=== PATIENT | female | born 1935 | race Caucasian/White ===

== ENCOUNTER 2018-09-05 09:16 | Inpatient (IN) ==
[2018-09-05] MEDS ORDERED: MoRPHine SULFATE 4 MG/ML 1 ML CARP\\VIAL IV PRN (09:26)
[2018-09-05] MEDS ORDERED: ONDANSETRON INJ 2 MG/ML 2 ML VIAL IV STA (09:26)
[2018-09-05 09:35] LABS: Basophils # (auto) 0.03 K/uL (0-0.2); Basophils % (auto) 0.3 %; Eosinophils # (auto) 0.03 K/uL (0-0.5); Eosinophils % (auto) 0.3 %; Hematocrit (blood only) 38.6 % (37-47); Hemoglobin 13.8 g/dL (12.0-16.0); Immature Granulocytes # (auto) 0.03 K/uL (0.00-0.02); Immature Granulocytes % (auto) 0.3 %; Lymphocytes # (auto) 1.19 K/uL (1.2-3.4); Lymphocytes % (auto) 12.7 %; Mean Corpuscular Hgb Conc 35.8 g/dL (32-36); Mean Corpuscular Volume 87.3 fL (80-100); Mean Platelet Volume 8.4 fL (7.4-10.4); Monocytes # (auto) 0.73 K/uL (0.11-0.59); Monocytes % (auto) 7.8 %; Neutrophils # (auto) 7.34 K/uL (1.4-6.5); Neutrophils % (auto) 78.6 %; Platelet Count 231 K/uL (130-400); RDW Coefficient of Variation 13.5 % (11.5-14.5); RDW Standard Deviation 43.5 fL (36.4-46.3); Red Blood Count 4.42 M/uL (4.2-5.4); White Blood Count 9.35 K/uL (4.8-10.8)
[2018-09-05 09:46] LABS: Partial Thromboplastin Ratio 0.9; Partial Thromboplastin Time 25.1 Seconds (21.0-31.0); Prothrombin Time 10.4 Seconds (9.0-12.0)
[2018-09-05 09:51] LABS: Alanine Aminotransferase 18 U/L (12-78); Albumin Level 3.5 gm/dl (3.4-5.0); Aspartate Aminotransferase 19 U/L (15-37); Blood Urea Nitrogen 8 mg/dl (7-18); Calcium 9.1 mg/dl (8.5-10.1); Carbon Dioxide 28 mmol/L (21-32); Chloride 96 mmol/L (98-107); Est GFR (African American) 97.7; Est GFR (Non-African American) 84.3; Glucose 117 mg/dl (70-99); Potassium 3.9 mmol/L (3.5-5.1); Sodium 132 mmol/L (136-145)
[2018-09-05 09:54] LABS: Albumin Globulin Ratio 0.9 (0.9-2); Alkaline Phosphatase 101 U/L (45-117); Bilirubin,Total 0.5 mg/dl (0.2-1); Total Protein 7.5 gm/dl (6.4-8.2)
--- NOTE | 2018-09-05 10:13 | XRay Report ---
XR hip RT 2-3V w pelvis CLINICAL HISTORY: Right hip pain status post trauma COMPARISON: None. DISCUSSION: There is an equivocal nondisplaced subcapital hip fracture. There is no dislocation. CT s bonilla should be considered follow-up. A calcification in the pelvis likely represents a calcified u terine fibroid. There is no SI joint diastases. There is no symphysis diastases. IMPRESSION: Somewhat limited study from positioning standpoint. A nondisplaced subcapital fracture ca nnot be excluded. CT scanning should be considered in follow-up. Electronically signed by: Elkin Berumen M.D. 09/05/2018 10:12 AM
--- NOTE | 2018-09-05 10:14 | XRay Report ---
XR chest 1V portable CLINICAL HISTORY: Hip pain status post trauma COMPARISON STUDY: No previous studies for comparison. FINDINGS: The heart is borderline enlarged. There is no failure. There is no lobar consolidation. The re are no pleural effusions. Increased left basilar markings are nonspecific are likely atelectatic. No pneumothorax is visualized.[ IMPRESSION: Slightly prominent left basilar markings statistically atelectatic. No failure. No eviden ce of lobar consolidation. Electronically signed by: Elkin Berumen M.D. 09/05/2018 10:12 AM
--- NOTE | 2018-09-05 11:29 | Magnetic Resonance Report ---
MR hip RT wo con CLINICAL HISTORY: Right hip pain status post trauma. Equivocal nondisplaced subcapital fracture on x- ray examination. Study requested by orthopedic surgeon. COMPARISON STUDY: X-ray study dated 09/05/2018 FINDINGS: Imaging was performed in the axial coronal and oblique sagittal planes. [employer] images reveal suspected multiple large gallstones. There are no areas of marrow replacement suspicious for neoplasm. There are multiple uterine fibroids. Subchondral cystic changes within the lateral right acetabulum are likely degenerative basis. There is T1 and T2 marrow edema involving the right femoral head and neck. There is a subtle cortical step-off at the level of the subcapital portion of the right femoral neck. There is a T1 hypointense band through the subcapital portion of the right hip. The findings are indicative of an acute subcap ital hip fracture. IMPRESSION: Acute subcapital right hip fracture. Electronically signed by: Elkin Berumen M.D. 09/05/2018 11:28 AM
[2018-09-05] MEDS ORDERED: BUPIVACAINE 0.5 % 5 MG/1 ML MPF 30ML VIAL INFIL ONE (11:44)
--- NOTE | 2018-09-05 11:55 | History & Physical Report ---
Date of Service September 05, 2018 Assessment & Plan (1) Fracture of right hip: Bedrest. Carias catheter placement. Parenteral pain control measures. Orthopedic consultation. N.p.o. after midnight for OR tomorrow Present on Admission?: Yes (2) HTN (hypertension): Treated with Benicar Present on Admission?: Yes (3) History of poliomyelitis: Supportive care (4) Restless leg syndrome: Consider ropinirole therapy (5) DVT prophylaxis: Lovenox subcu History of Present Illness Chief Complaint: Fall, right hip pain Primary Care Provider: NO PCP 83-year-old female in good health who tripped and fell at home suffering right hip pain. She was brought to the ED for evaluation. MRI scan reveals evidence of right hip fracture which is nondisplaced. The ED physician has discussed the case with Dr. Donald Alford of orthopedic surgery. I anticipate she will go to the OR tomorrow morning. Carias catheter will be placed and EKG obtained. She takes Benicar for hypertension. She is otherwise medically stable and medically cleared for surgery at this time. Past Med/Surg History Medical History Restless leg syndrome (Chronic) Fracture of right hip (Acute) HTN (hypertension) (Chronic) History of poliomyelitis (Chronic) Surgical History No pertinent past surgical history Social History Feels Safe at Home: Yes Smoking Status: Never smoker Review of Systems Review of Systems: Constitutional-no fever or chills ENT-no blurred vision, no double vision, no epistaxis, no sore throat Respiratory-no cough, no wheezing, no shortness of breath Cardiac-no palpitations, no chest pain, no syncope GI-no nausea, vomiting, diarrhea, melena, hematochezia -no urinary retention, no urinary incontinence, no dysuria, no hematuria Musculoskeletal-no muscle tenderness. Right hip pain after falling today Skin-no bruising, no rashes, no pruritus Neuro-no isolated weakness, no paresthesia, no weakness Psych-no depression, no anxiety Physical Exam Physical Exam: General-alert and oriented x3, no fevers, no chills HEENT-head atraumatic and normocephalic, TMs intact bilaterally, pupils equal and reactive to light, extraocular muscles intact Neck-no lymphadenopathy or thyromegaly, trachea midline Chest-clear to auscultation percussion. No rales wheezing or rhonchi Cardiac-regular rate and rhythm, normal S1 and S2, occasional premature beat Abdomen-normal bowel sounds, nontender, no hepatosplenomegaly Extremities-no cyanosis, clubbing, or edema. Tenderness right hip area with limited range of motion right leg Neuro-cranial nerves II through XII intact, motor and sensory function within normal limits, strength symmetrical , no focal deficits Psych-normal affect, normal mood Results & Data Vital Signs (Past 12 Hours) Vital Signs Temp Pulse Pulse Resp BP BP Pulse Ox 09/05/18 11:29 80 17 165/66 H 93 09/05/18 10:04 90 18 163/76 H 93 09/05/18 09:27 36.7 C 87 18 194/97 H 94 Laboratory Results 09/05/18 09:25 09/05/18 09:25 PG Care Time/CCT Total # of Minutes Spent Total Time Spent with Patient: Total time spent is greater than 50% in coordination of care (as documented) at patient's floor/unit and/or counseling patient:
[2018-09-05 12:41] LABS: Appearance Urine Clear (Clear); Bilirubin Urine Negative (Negative); Blood Urine Negative (Negative); Color Urine Yellow; Glucose Urine UA Negative (Negative); Ketones Urine 1+ (Negative); Leukocyte Esterase Urine Negative (Negative); Nitrite Urine Negative (Negative); Protein Urine Negative (Negative); Specific Gravity Urine 1.013 (1.000-1.030); Urobilinogen Urine Negative (Negative); pH Urine 7.5 (4.5-7.5)
[2018-09-05] MEDS ORDERED: ALUMINUM/MAGNESIUM SUSP 30 ML UDC PO PRN (13:51)
[2018-09-05] MEDS ORDERED: MoRPHine SULFATE 2 MG/ML CARP IV PRN (13:51)
[2018-09-05] MEDS ORDERED: ONDANSETRON INJ 2 MG/ML 2 ML VIAL IV PRN (13:51)
[2018-09-05] MEDS ORDERED: PATIENT'S HEIGHT AND/OR WEIGHT NEEDED SCH (14:00)
[2018-09-05] MEDS: SODIUM CHLORIDE 0.9% 1000ML 1,000 ML IV SCH (14:18)
[2018-09-05] MEDS ORDERED: ENOXAPARIN INJ 40 MG/0.4 ML SYR SQ SCH (15:00)
--- NOTE | 2018-09-05 15:43 | Emergency Department Note ---
Entered by Hannah Harrison acting as a scribe for Janes Wang DO History of Present Illness General Chief complaint: Fall Time Seen by Provider: 09/05/18 09:18 Source: patient Mode of arrival: ambulatory History of Present Illness Onset (ago): hour(s) less than 1 Location: head (Fall) Radiation: extremity (Right thigh) Pain Consistency: + other (Episode) Quality: + other (Fall) Exacerbated By: + movement Associated symptoms: + other (Right hip pain); no chest pain, no nausea/vomiting and no syncope Treatments prior to arrival: none The patient is an 83 year old female who presents to the Emergency Department via EMS complaining of an episode of a fall starting less than 1 hour ago. The patient reports that she was in her home and her dog jumped up on her, taking her by surprise resulting in a fall. She states that she fell on the right side of her body. She explains that her right hip hurts and that her right hip pain radiates down to her right thigh. She notes that she can not put pressure on her right leg and when she tries to walk her hip pain worsens. 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 The patient reports that she is from out of town and sees a PCP in [place]. She states that she takes medication for HTN. She notes that she has no past surgical history and has no known allergies to medication. The patient denies any recent head trauma, syncope, chest pain, left hip pain, nausea, abdominal pain, shoulder pain, use of blood thinners, tobacco use and alcohol use. Home Medications Home Medications Medication Instructions Recorded Confirmed Type multivitamin 1 cap PO QAM 09/05/18 09/05/18 History olmesartan-hydrochlorothiazide 1 tab PO DAILY 09/05/18 09/05/18 History Allergies Allergy/AdvReac Type Severity Reaction Status Date / Time No Known Allergies Allergy Unverified 09/05/18 12:08 Past Med/Surg History Medical History Restless leg syndrome (Chronic) Fracture of right hip (Acute) HTN (hypertension) (Chronic) History of poliomyelitis (Chronic) Surgical History No pertinent past surgical history Social History Preferred Language: Gabonese Communication Ability: Effective Meat Cutter Apprentice Required: No Beliefs That Will Affect Care: None Current Living Situation: Alone Current Living Situation Comment: from [place], [place] but here in town visiting Other Information That Helps Us Care for You: No Feels Safe at Home: Yes Safety Concerns: Feels Safe At This Time Smoking Status: Former smoker Do You Dip or Chew Tobacco: No Second Hand Exposure: Yes Tobacco Cessation Education Requested by Patient: No Hx Alcohol Use: Yes Alcohol type: wine Hx Substance Use: No Review of Systems See HPI for pertinent positives & negatives. and A total of 10 systems reviewed and were otherwise negative Physical Exam Vital Signs Vital Signs - 24 hr 09/05/18 09:27 09/05/18 10:04 09/05/18 11:29 Temperature 36.7 C Temperature Source Oral Sepsis Recent Fever Within 48 Hours No Sepsis Action Taken by Nursing No Action Required Pulse Rate 87 Pulse Rate [Apical] 90 80 Pulse Rhythm [Apical] Regular Pulse Strength [Apical] Normal Respiratory Rate 18 18 17 Respiratory Effort / Characteristics Non-Labored Spontaneous Respiratory Depth Normal Respiratory Pattern Regular Blood Pressure 194/97 H Blood Pressure [Left Arm] 163/76 H 165/66 H Blood Pressure Mean 129 Blood Pressure Mean [Left Arm] 105 99 Blood Pressure Position Lying Pulse Oximetry 94 93 93 Oxygen Delivery Method Room Air Room Air Room Air GENERAL: Patient is awake, alert, and in no acute distress.Patient is uncomfortable and anxious appearing. EYES: The conjunctivae are clear. The pupils are round and reactive. EARS, NOSE, MOUTH AND THROAT: The nose is without any evidence of any deformity. Mucous membranes are moist.Tongue is midline NECK: The neck is nontender and supple. RESPIRATORY: Normal respiratory effort is noted. There is no evidence of wheezing rhonchi or rales to auscultation. CARDIOVASCULAR: Regular rate and rhythm noted. There no murmurs rubs or gallops normal S1 normal S2. Ectopy was noted to auscultation. GASTROINTESTINAL: The abdomen is soft. Bowel sounds are present in all quadrants. Abdomen is nontender. BACK: No midline tenderness or or step-off noted range of motion in flexion extension as well as rotation no signs of muscle spasm noted. MUSCULOSKELETAL/EXTREMITIES: There is no evidence of gross deformity. Full range of motion is noted in the hips and shoulders. No shortening of RLE. Patient has significant pain with movement of RLE at the hip joint. SKIN: There is no obvious evidence of any rash. There are no petechiae, pallor or cyanosis noted. NEUROLOGIC: Patient is awake alert and oriented x3. Procedures Nerve Block Nerve Block 1: Time out performed: Yes Local Anesthetic: bupivacaine 0.5% Amount of anesthesia used (mL): 25 Side: right Nerve Blocks: femoral Procedure Successful: Yes Patient Tolerated Procedure: well Complications: none Course 09: The patient was evaluated in room A11B, and a complete history and physical examination were performed. 1015: I discussed the patient's case with Shira Reynolds PA-C. 1020: I discussed the patient's case with Dr. Prashanth Nguyen Orthopbrooke who requests that the patient get an MRI. 1021: I updated the patient at this time. 1400: I discussed the patient's case with Dr. Juanito CANDELARIO hospitalist. He will evaluate the patient for further management. Consultations Consultation #1: I discussed the patient's case with Shira Reynolds PA-C. Time: 10:15 Consultation #2: I discussed the patient's case with Dr. Prashanth Nguyen Orthopbrooke w ho requests that the patient get an MRI. Time: 10:20 Consultation #3: I discussed the patient's case with Dr. Juanito CANDELARIO hospi talist. He will evaluate the patient for further management. Time: 14:00 Administered Medications Enoxaparin Sodium (Lovenox) 40 mg SQ Q24H MARKELL Stop: 10/05/18 14:59 Last Admin: 09/05/18 16:08 Dose: 40 mg Documented by: [id number] Sodium Chloride (Nss 1000ml) 1,000 mls @ 60 mls/hr IV .[id number] MARKELL Stop: 10/05/18 13:50 Last Admin: 09/05/18 14:18 Dose: 60 mls/hr Documented by: [id number] Discontinued Medications Bupivacaine HCl (Marcaine 0.5% Mpf) 30 ml INFIL NOW ONE Stop: 09/05/18 11:45 Last Admin: 09/05/18 12:10 Dose: 30 ml Documented by: [id number] Miscellaneous (Patient's Height And/Or Weight Needed) 1 ea N/A Q2H MARKELL Stop: 10/05/18 13:59 Last Admin: 09/05/18 14:21 Dose: 1 ea Documented by: [id number] Morphine Sulfate (Morphine Sulfate) 4 mg IV Q15M PRN PRN Reason: Pain Stop: 09/19/18 09:25 Last Admin: 09/05/18 09:36 Dose: 4 mg Documented by: [id number] Ondansetron HCl (Zofran) 4 mg IV NOW STA Stop: 09/05/18 09:27 Last Admin: 09/05/18 09:36 Dose: 4 mg Documented by: [id number] Medical Decision Making Differential Diagnosis Differential diagnosis: Etiologies such as fracture, dislocation, neurovascular compromise, compartment syndrome, soft tissue injury, as well as others were entertained. Medical Records Attestation: I reviewed the patient's medical records. Home Medications Current Medication List: was personally reviewed by me Laboratory Data Attestation: I reviewed the patient's lab results. Result diagrams: 09/05/18 09:25 09/05/18 09:25 Lab Results 09/05/18 09/05/18 09/05/18 Range/Units 09:25 09:25 09:25 WBC 9.35 (4.8-10.8) K/uL RBC 4.42 (4.2-5.4) M/uL Hgb 13.8 (12.0-16.0) g/dL Hct 38.6 (37-47) % MCV 87.3 (80-100) fL MCH 31.2 (25-34) pg MCHC 35.8 (32-36) g/dL RDW Std Deviation 43.5 (36.4-46.3) fL RDW Coeff of Cassidy 13.5 (11.5-14.5) % Plt Count 231 (130-400) K/uL MPV 8.4 (7.4-10.4) fL Immature Gran % (Auto) 0.3 % Neut % (Auto) 78.6 % Lymph % (Auto) 12.7 % Plumas % (Auto) 7.8 % Eos % (Auto) 0.3 % Baso % (Auto) 0.3 % Immature Gran # (Auto) 0.03 H (0.00-0.02) K/uL Neut # (Auto) 7.34 H (1.4-6.5) K/uL Lymph # (Auto) 1.19 L (1.2-3.4) K/uL Plumas # (Auto) 0.73 H (0.11-0.59) K/uL Eos # (Auto) 0.03 (0-0.5) K/uL Baso # (Auto) 0.03 (0-0.2) K/uL PT 10.4 (9.0-12.0) Seconds INR 1.0 (0.9-1.1) APTT 25.1 (21.0-31.0) Seconds PTT Ratio 0.9 Sodium 132 L (136-145) mmol/L Potassium 3.9 (3.5-5.1) mmol/L Chloride 96 L (98-107) mmol/L Carbon Dioxide 28 (21-32) mmol/L Anion Gap 8.0 (3-11) BUN 8 (7-18) mg/dl Creatinine 0.60 (0.6-1.2) mg/dl Est Cr Clr Drug Dosing Not Reportable Est GFR ( Amer) 97.7 Est GFR (Non-Af Amer) 84.3 BUN/Creatinine Ratio 14.0 (10-20) Glucose 117 H (70-99) mg/dl Osmolality (280-300) mOsm/kg Calcium 9.1 (8.5-10.1) mg/dl Total Bilirubin 0.5 (0.2-1) mg/dl AST 19 (15-37) U/L ALT 18 (12-78) U/L Alkaline Phosphatase 101 (45-117) U/L Troponin I (0-0.045) ng/ml Total Protein 7.5 (6.4-8.2) gm/dl Albumin 3.5 (3.4-5.0) gm/dl Globulin 4.0 (2.5-4.0) gm/dl Albumin/Globulin Ratio 0.9 (0.9-2) Blood Type Antibody Screen 09/05/18 09/05/18 09/05/18 Range/Units 09:25 09:25 09:45 WBC (4.8-10.8) K/uL RBC (4.2-5.4) M/uL Hgb (12.0-16.0) g/dL Hct (37-47) % MCV (80-100) fL MCH (25-34) pg MCHC (32-36) g/dL RDW Std Deviation (36.4-46.3) fL RDW Coeff of Cassidy (11.5-14.5) % Plt Count (130-400) K/uL MPV (7.4-10.4) fL Immature Gran % (Auto) % Neut % (Auto) % Lymph % (Auto) % Plumas % (Auto) % Eos % (Auto) % Baso % (Auto) % Immature Gran # (Auto) (0.00-0.02) K/uL Neut # (Auto) (1.4-6.5) K/uL Lymph # (Auto) (1.2-3.4) K/uL Plumas # (Auto) (0.11-0.59) K/uL Eos # (Auto) (0-0.5) K/uL Baso # (Auto) (0-0.2) K/uL PT (9.0-12.0) Seconds INR (0.9-1.1) APTT (21.0-31.0) Seconds PTT Ratio Sodium (136-145) mmol/L Potassium (3.5-5.1) mmol/L Chloride (98-107) mmol/L Carbon Dioxide (21-32) mmol/L Anion Gap (3-11) BUN (7-18) mg/dl Creatinine (0.6-1.2) mg/dl Est Cr Clr Drug Dosing Est GFR ( Amer) Est GFR (Non-Af Amer) BUN/Creatinine Ratio (10-20) Glucose (70-99) mg/dl Osmolality 272 L (280-300) mOsm/kg Calcium (8.5-10.1) mg/dl Total Bilirubin (0.2-1) mg/dl AST (15-37) U/L ALT (12-78) U/L Alkaline Phosphatase (45-117) U/L Troponin I < 0.015 (0-0.045) ng/ml Total Protein (6.4-8.2) gm/dl Albumin (3.4-5.0) gm/dl Globulin (2.5-4.0) gm/dl Albumin/Globulin Ratio (0.9-2) Blood Type B Positive Antibody Screen NEGATIVE Imaging Data Radiologist's Impression: Radiology results as stated below per my review and the radiologist's interpretation: XR chest 1V portable CLINICAL HISTORY: Hip pain status post trauma COMPARISON STUDY: No previous studies for comparison. FINDINGS: The heart is borderline enlarged. There is no failure. There is no lobar consolidation. There are no pleural effusions. Increased left basilar markings are nonspecific are likely atelectatic. No pneumothorax is visualized.[ IMPRESSION: Slightly prominent left basilar markings statistically atelectatic. No failure. No evidence of lobar consolidation. Electronically signed by: Elkin Berumen M.D. 09/05/2018 10:12 AM XR hip RT 2-3V w pelvis CLINICAL HISTORY: Right hip pain status post trauma COMPARISON: None. DISCUSSION: There is an equivocal nondisplaced subcapital hip fracture. There is no dislocation. CT scanning should be considered follow-up. A calcification in the pelvis likely represents a calcified uterine fibroid. There is no SI joint diastases. There is no symphysis diastases. IMPRESSION: Somewhat limited study from positioning standpoint. A nondisplaced subcapital fracture cannot be excluded. CT scanning should be considered in follow-up. Electronically signed by: Elkin Berumen M.D. 09/05/2018 10:12 AM MR hip RT wo con CLINICAL HISTORY: Right hip pain status post trauma. Equivocal nondisplaced subcapital fracture on x-ray examination. Study requested by orthopedic surgeon. COMPARISON STUDY: X-ray study dated 09/05/2018 FINDINGS: Imaging was performed in the axial coronal and oblique sagittal planes. Automotive Generator Repairer images reveal suspected multiple large gallstones. There are no areas of marrow replacement suspicious for neoplasm. There are multiple uterine fibroids. Subchondral cystic changes within the lateral right acetabulum are likely degenerative basis. There is T1 and T2 marrow edema involving the right femoral head and neck. There is a subtle cortical step-off at the level of the subcapital portion of the right femoral neck. There is a T1 hypointense band through the subcapital portion of the right hip. The findings are indicative of an acute subcapital hip fracture. IMPRESSION: Acute subcapital right hip fracture. Electronically signed by: Elkin Berumen M.D. 09/05/2018 11:28 AM ECG Data Attestation: I personally reviewed and interpreted this ECG as follows: Indication: weakness Rate (beats per minute): 89 Rhythm: sinus rhythm Findings: + PAC and + ST depression (Laterally); no ST elevation Comparison ECG Date: no prior available Blood Pressure Blood Pressure Findings: Elevated blood pressure Blood Pressure Disposition: further management by hospitalist ANDREA Serrano The patient is an 83-year-old female who presented to the emergency department after a fall. The patient had a mechanical fall landing on her right side. The patient's x-rays appear to be consistent with a right subcapital hip fracture. The patient was treated with IV pain medication but she also had a nerve block in her right femoral nerve to help with pain. On reevaluation the patient was somewhat improved but still had significant right hip pain. The patient had a medical clearance started in the emergency department. I discussed the patient's laboratory and radiographic studies with her. I discussed her case with the on-call [facility] hospitalist group. They have agreed to evaluate the patient in the emergency department for further management and disposition. I also discussed this case with the on-call orthopedic physician of the patient's family's choice. They have agreed to evaluate the patient for possible surgical management. The patient's x-ray initially was not completely conclusive with a subcapital hip fracture so MRI was obtained. This did confirm hip fracture. Impression & Plan Fall, Subcapital fracture of right hip Discharge Plan Visit Data *Final* Discharge Date/Time: 09/05/18 12:37 Chief Complaint: Fall Other Complaint: Hip Pain ED Provider: Janes Wang Discharge Problem: Fall, Subcapital fracture of right hip Patient Disposition: Admitted As Inpatient Discharge Instructions Interventions: ED Discharge Assessment Last Done: 09/05/18 12:37 Discharge Problem: Fall Qualifiers: Encounter type: initial encounter Qualified Code(s): W19.XXXA - Unspecified fall, initial encounter Subcapital fracture of right hip Qualifiers: Encounter type: initial encounter Fracture type: closed Qualified Code(s): S72.011A - Unspecified intracapsular fracture of right femur, initial encounter for closed fracture The scribe's documentation has been prepared under my direction and personally reviewed by me in its entirety. I confirm that the note above accurately reflects all work, treatment, procedures, and medical decision making performed by me.
[2018-09-05] MEDS ORDERED: Nursing to Pharmacy Communication ONE (16:03)
--- NOTE | 2018-09-05 21:28 | Consultation Report ---
DATE OF CONSULTATION: 09/05/2018 ORTHOPEDIC CONSULTATION CHIEF COMPLAINT: Right hip pain. HISTORY OF PRESENT ILLNESS: The patient is an 83-year-old female from the [place] who is visiting her son when she sustained a fall earlier today. Apparently, a dog jumped up on her and she lost her balance and fell on her right hip. She had pain right away. They got her up and let her sit for a while. They tried to get her walk and she could not weight bear. They called the ambulance. She was brought to the Emergency Room. X-rays showed a valgus impacted femoral neck fracture. We were consulted for evaluation. There have been no other injuries. No preexisting hip pain. She did use a cane to ambulate mostly for balance purposes before this. No head injury, no loss of consciousness. PAST MEDICAL HISTORY: 1. Hypertension. 2. 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 3. Knee arthritis bilaterally. 4. Restless legs syndrome. PAST SURGICAL HISTORY: Includes cataract surgery. ALLERGIES: None. CURRENT MEDICINES: Include unspecified generic antihypertensive medicine. SOCIAL HISTORY: An 83-year-old female. She is recently . Does not smoke. She is here visiting her son. FAMILY HISTORY: Noncontributory. REVIEW OF SYSTEMS: As above. Denies any head injury or loss of consciousness. No chest pain or shortness of breath. No history of DVT or PE. No bleeding problems. OBJECTIVE: VITAL SIGNS: Temperature is 36.8. Vital signs stable. PHYSICAL EXAMINATION: GENERAL: Reveals a pleasant elderly female. She is lying in bed, looks pretty comfortable. MUSCULOSKELETAL: General musculoskeletal exam reveals painless range of motion of her cervical, thoracic and lumbar spine. She has painless range of motion of both shoulders, wrist, elbows and hands. Examination of her left lower extremity reveals it to be well aligned. She can do a straight leg raise. She has no pain with hip or knee motion. Examination of the right leg reveals no visible deformity. She describes pain in her lateral hip area, groin and buttock area. She does have some bony and arthritic changes of her knee. No knee effusion. She cannot do a straight leg raise. She has pain with any type of hip motion. She can dorsiflex and plantarflex her foot appropriately. IMAGES: X-rays from the ER were reviewed. The plain films suggested a valgus impacted femoral neck fracture. Looks perfectly well aligned on the lateral film and a bit difficult to discern a clear fracture. MRI: MRI was obtained, which reveals a valgus impacted femoral neck fracture. ASSESSMENT: An 83-year-old fairly healthy female status post a fall with a valgus impacted femoral neck fracture. No signs of underlying bone pathology other than osteoporosis. This does not look displaced. PLAN: We discussed treatment options with the patient and her son today. [place] treatment is cannulated screw fixation. If we find the fracture is displaced, the treatment will be a cemented bipolar hip arthroplasty. I discussed the risks and benefits of these procedures with the patient today. She has been medically optimized. We will plan on doing this tomorrow. We will plan on cannulated screws. If there is displacement, we will proceed with hip arthroplasty. The risks and benefits of cannulated screw fixation and arthroplasty were explained to the patient and son including but not limited to DVT, PE, , infection, neurological injury, vascular injury, bleeding problem, pain, limited range of motion, stiffness, failure to relieve her symptoms, nonunion, malunion, avascular necrosis, need for further surgery in the future, persistent pain, etc. The patient understands and desires to proceed. Informed consent was obtained. We will continue DVT prophylaxis including thigh-high TEDs and SCDs. We will likely place her on postoperative aspirin therapy. She will be 50% weightbearing for the first 6 weeks. She will likely need a rehab stay.
[2018-09-06] MEDS: ACETAMINOPHEN 325 MG TAB PO PRN ×3 (05:15→23:01)
[2018-09-06] MEDS: SODIUM CHLORIDE 0.9% 1000ML 1,000 ML IV SCH ×2 (05:15→20:51)
--- NOTE | 2018-09-06 07:25 | History & Physical Bridge Note ---
Date of Service September 06, 2018 History & Physical Bridge Note I have examined the patient, reviewed the History & Physical and in the interval since the performance of the History & Physical I have noted the following changes of clinical significance: no changes noted
[2018-09-06] MEDS: OLMESARTAN MEDOXOMIL 20 MG TAB PO SCH (09:29)
--- NOTE | 2018-09-06 09:29 | Progress Note ---
DATE: 09/06/2018 SUBJECTIVE: An 83-year-old female admitted with a valgus impacted femoral neck fracture. She is doing okay. No interval change in symptoms. Really not much pain while lying in bed. No other complaints. Anticipating surgery today. OBJECTIVE: VITAL SIGNS: Temperature 37.1. Vital signs stable. PHYSICAL EXAMINATION: GENERAL: Reveals a pleasant elderly female. She is lying in bed, looks comfortable. EXTREMITIES: Examination of the right leg reveals it to be well aligned. No obvious displacement. She does have pain with any type of hip motion. She is neurologically intact. ASSESSMENT: An 83-year-old female with a valgus impacted femoral neck fracture. PLAN: We will plan to take her to the operating room today for a cannulated screw fixation. Continue DVT prophylaxis including TEDs and SCDs and likely aspirin postop. She will likely need rehab placement. We will proceed with the plan as above.
--- NOTE | 2018-09-06 12:20 | Anesthesiology Consultation ---
Date of Service September 06, 2018 Assessment & Plan (1) Encounter for pre-operative examination: Chart Review Chart Review: Acceptable Risk for Surgery and Patient NOT seen in Pre Admission Testing Consults Requested none ASA ASA3 Proposed Anesthesia Anesthesia Type: Spinal History Surgery Operation Date: 09/06/18 10:00 Proposed Procedures p Right Femoral Neck Fracture Right Cannulated Screw - Donald Alford MD Height/Weight Height: 5 ft 8 in Weight: 69.9 kg Allergies Allergy/AdvReac Type Severity Reaction Status Date / Time No Known Allergies Allergy Unverified 09/05/18 12:08 Medications Home Medications Medication Instructions Recorded Confirmed Last Taken multivitamin 1 cap PO QAM 09/05/18 09/05/18 Unknown olmesartan-hydrochlorothiazide 1 tab PO DAILY 09/05/18 09/05/18 Unknown Active Medications Generic Name Dose Route Start Last Admin Trade Name Freq PRN Reason Stop Dose Admin Acetaminophen 650 mg 09/05/18 13:51 09/06/18 05:15 Tylenol PO 10/05/18 13:50 650 mg Q4H PRN Administration pain/fever Enoxaparin Sodium 40 mg 09/05/18 15:00 09/05/18 16:08 Lovenox SQ 10/05/18 14:59 40 mg Q24H MARKELL Administration Sodium Chloride 1,000 mls @ 60 mls/hr 09/05/18 13:51 09/06/18 05:15 Nss 1000ml IV 10/05/18 13:50 60 mls/hr .[id number] MARKELL Administration Morphine Sulfate 2 mg 09/05/18 13:51 09/05/18 20:42 Morphine Sulfate IV 09/19/18 13:50 2 mg Q3H PRN Administration Pain Olmesartan 20 mg 09/06/18 09:00 09/06/18 09:29 Benicar PO 10/06/18 08:59 20 mg QAM MARKELL Administration NPO Date Last Intake of Fluids: 09/05/18 Time Last Intake of Fluids: 23:00 Date Last Intake of Solids: 09/05/18 Time Last Intake of Solids: 23:00 Past Medical History Medical History Restless leg syndrome (Chronic) Fracture of right hip (Acute) HTN (hypertension) (Chronic) History of poliomyelitis (Chronic) Past Surgical History Surgical History No pertinent past surgical history Social History Smoking Status: Former smoker Do You Dip or Chew Tobacco: No Hx Alcohol Use: Yes Alcohol type: wine alcohol intake frequency: holidays/special occasions only Hx Substance Use: No Physical Exam Vital Signs Last Vital Signs Temp 37.0 C 09/06/18 07:30 Pulse 76 09/06/18 07:30 Resp 16 09/06/18 07:30 BP 152/62 H 09/06/18 07:30 Pulse Ox 90 09/06/18 07:30 Testing Laboratory Results 09/05/18 09:25 09/05/18 09:25 PT 10.4 Seconds (9.0-12.0) 09/05/18 09:25 INR 1.0 (0.9-1.1) 09/05/18 09:25 APTT 25.1 Seconds (21.0-31.0) 09/05/18 09:25 Urine Color Yellow 09/05/18 12:10 Urine Appearance Clear (Clear) 09/05/18 12:10 Urine pH 7.5 (4.5-7.5) 09/05/18 12:10 Ur Specific [place] 1.013 (1.000-1.030) 09/05/18 12:10 Urine Protein Negative (Negative) 09/05/18 12:10 Urine Glucose (UA) Negative (Negative) 09/05/18 12:10 Urine Ketones 1+ (Negative) H 09/05/18 12:10 Urine Nitrite Negative (Negative) 09/05/18 12:10 Ur Leukocyte Esterase Negative (Negative) 09/05/18 12:10 Blood Type B Positive 09/05/18 09:45 Antibody Screen NEGATIVE 09/05/18 09:45
[2018-09-06] MEDS ORDERED: MIDAZOLAM HCL 1 MG/ML 2ML VIAL ONE (13:56)
[2018-09-06] MEDS ORDERED: fentaNYL citrate 100 MCG/2 ML VIAL ONE (13:56)
[2018-09-06] MEDS ORDERED: BUPIVACAINE/EPINEPHRINE 0.5% MPF 1:200,000 30 ML VIAL ONE (14:02)
[2018-09-06] MEDS ORDERED: CEFAZOLIN 1,000 MG/7.5 ML IV PUSH IV ONE (14:13)
[2018-09-06] MEDS ORDERED: ePHEDrine sulfate 50 MG/ML AMP IV PRN (14:14)
[2018-09-06] MEDS ORDERED: HYDROmorphone INJ 1 MG/ML SYRINGE IV PRN (14:14)
[2018-09-06] MEDS ORDERED: ATROPINE SULFATE 0.1 MG/ML 10ML SYR IV PRN (14:14)
[2018-09-06] MEDS ORDERED: CEFAZOLIN 1000MG 1,000 MG/7.5 ML SYR IV ONE (14:16)
[2018-09-06] MEDS ORDERED: PROPOFOL IV EMULSION 10 MG/ML 20 ML VIAL IV ONE (15:18)
[2018-09-06] MEDS ORDERED: ePHEDrine sulfate 50 MG/ML SYR ONE (15:20)
--- NOTE | 2018-09-06 15:31 | Post Operative Brief Note ---
Immediate Post Op Note v1 Date of Surgery September 06, 2018 Pre & Post Diagnosis Operation Date: 09/06/18 10:00 Pre-Op Diagnosis: Right hip fracture Post-Op Diagnosis: Right hip fracture Procedure Operation Date: 09/06/18 10:00 Actual Procedures p Right Femoral Neck Fracture Right Cannulated Screw(Right) - Donald Alford MD Surgeon Donald Alford MD Packaging Supervisor Sal, PAC Estimated Blood Loss 50 Findings Consistent with Post-Op Diagnosis Fluids 1200 cc Drains Carias Catheter Anesthesia Type Spinal Complications none Disposition Accompanied Patient To Recovery: No Disposition: Recovery Room
--- NOTE | 2018-09-06 15:40 | Fluoroscopy Report ---
FL hip RT 2-3V CLINICAL HISTORY: Hip fracture status post internal fixation COMPARISON STUDY: 09/05/2018 FLUOROSCOPY TIME: The 5 second. NUMBER OF FLUOROSCOPIC IMAGES: 2 FINDINGS: 2 intraoperative fluoroscopic spot images demonstrate internal fixation of the subcapital h ip fracture with 3 cannulated screws. IMPRESSION: Internally fixated subcapital hip fracture with 3 cannulated screws Electronically signed by: Elkin Berumen M.D. 09/06/2018 3:38 PM
--- NOTE | 2018-09-06 18:05 | Anesthesiology Progress Note ---
Date of Service September 06, 2018 Anesthesia Post Procedure Vital Signs Vital Signs: Temp Pulse Pulse Resp BP Pulse Ox 09/06/18 17:55 36.9 C 85 18 171/86 H 99 09/06/18 17:45 36.9 C 76 18 174/91 H 99 09/06/18 17:35 76 16 169/81 H 99 09/06/18 17:25 78 20 166/79 H 100 09/06/18 17:15 80 14 172/97 H 97 09/06/18 17:05 75 14 163/79 H 99 09/06/18 16:55 37.4 C 77 13 170/78 H 99 09/06/18 16:45 72 13 153/92 H 100 09/06/18 16:35 81 13 161/71 H 99 09/06/18 16:25 78 17 164/72 H 100 09/06/18 16:15 74 13 143/75 H 93 09/06/18 16:05 71 14 150/75 H 94 09/06/18 15:55 77 12 143/62 H 100 09/06/18 15:45 70 14 134/75 100 09/06/18 15:35 36.5 C 78 13 111/53 L 100 09/06/18 13:54 37.1 C 76 16 180/88 H 92 09/06/18 07:30 37.0 C 76 16 152/62 H 90 09/05/18 23:28 88 154/73 H 09/05/18 23:20 37.1 C 93 H 17 159/83 H 92 Pain Intensity Right Hip: Pain Intensity: 8 Transfer of Care Handoff Completed per policy Notes Mental Status: alert / awake / arousable Patient Amnestic to Procedure: Yes Nausea / Vomiting: adequately controlled Pain: adequately controlled Airway Patency, RR, SpO2: stable & adequate BP & HR: stable & adequate Hydration State: stable & adequate Neuraxial Anesthesia: was administered and sensory block is resolving Anesthetic Complications: no major complications apparent
[2018-09-06] MEDS ORDERED: TRAMADOL HCL 50 MG TABLET PO PRN (18:12)
[2018-09-06] MEDS ORDERED: BISACODYL 10 MG SUPP PR PRN (18:12)
[2018-09-06] MEDS ORDERED: ONDANSETRON INJ 2 MG/ML 2 ML VIAL IV PRN (18:12)
[2018-09-06] MEDS ORDERED: HYDROmorphone INJ 0.5 MG/0.5 ML SYR IV PRN (18:12)
[2018-09-06] MEDS ORDERED: NALOXONE HCL 0.4 MG/1 ML VIAL/CARP IV PRN (18:12)
[2018-09-06] MEDS ORDERED: SOD PHOSPHATE/SOD BIPHOSPHATE ENEMA 132 ML BTL PR PRN (18:12)
[2018-09-06] MEDS: CEFAZOLIN 1000MG 1,000 MG/7.5 ML SYR IV SCH (20:52)
[2018-09-06] MEDS: ASPIRIN 81 MG ECTAB PO SCH (20:52)
--- NOTE | 2018-09-06 21:09 | Hospitalist Progress Note ---
Date of Service September 06, 2018 Assessment & Plan (1) Fracture of right hip: Bedrest. Carias catheter placement. Parenteral pain control measures. Orthopedic consultation. N.p.o. awaiting input from ortho (2) HTN (hypertension): Treated with Benicar (3) History of poliomyelitis: Supportive care (4) Restless leg syndrome: Consider ropinirole therapy (5) DVT prophylaxis: Lovenox subcu Subjective 83 yo female reports no signifcant improvement from yesterday. Patient contiues to have pain in her right hip. Review of Systems Review of Systems: Constitutional-no fever or chills ENT-no blurred vision, no double vision, no epistaxis, no sore throat Respiratory-no cough, no wheezing, no shortness of breath Cardiac-no palpitations, no chest pain, no syncope GI-no nausea, vomiting, diarrhea, melena, hematochezia -no urinary retention, no urinary incontinence, no dysuria, no hematuria Musculoskeletal-no muscle tenderness. Right hip pain after falling today Skin-no bruising, no rashes, no pruritus Neuro-no isolated weakness, no paresthesia, no weakness Psych-no depression, no anxiety Physical Exam Physical Exam: General-alert and oriented x3, no fevers, no chills HEENT-head atraumatic and normocephalic, TMs intact bilaterally, pupils equal and reactive to light, extraocular muscles intact Neck-no lymphadenopathy or thyromegaly, trachea midline Chest-clear to auscultation percussion. No rales wheezing or rhonchi Cardiac-regular rate and rhythm, normal S1 and S2, occasional premature beat Abdomen-normal bowel sounds, nontender, no hepatosplenomegaly Extremities-no cyanosis, clubbing, or edema. Tenderness right hip area with limited range of motion right leg Neuro-cranial nerves II through XII intact, motor and sensory function within normal limits, strength symmetrical , no focal deficits Psych-normal affect, normal mood Results & Data Vital Signs (Past 12 Hours) Vital Signs Temp Pulse Pulse Pulse Pulse Resp BP 09/06/18 20:46 79 09/06/18 20:37 37.2 C 79 16 195/90 H 09/06/18 19:28 37.3 C 79 18 180/92 H 09/06/18 18:45 37.4 C 84 18 189/84 H 09/06/18 18:10 37.1 C 90 16 177/85 H 09/06/18 17:55 36.9 C 85 18 171/86 H 09/06/18 17:45 36.9 C 76 18 174/91 H 09/06/18 17:35 76 16 169/81 H 09/06/18 17:25 78 20 166/79 H 09/06/18 17:15 80 14 172/97 H 09/06/18 17:05 75 14 163/79 H 09/06/18 16:55 37.4 C 77 13 170/78 H 09/06/18 16:45 72 13 153/92 H 09/06/18 16:35 81 13 161/71 H 09/06/18 16:25 78 17 164/72 H 09/06/18 16:15 74 13 143/75 H 09/06/18 16:05 71 14 150/75 H 09/06/18 15:55 77 12 143/62 H 09/06/18 15:45 70 14 134/75 09/06/18 15:35 36.5 C 78 13 111/53 L 09/06/18 13:54 37.1 C 76 16 180/88 H BP Pulse Ox 09/06/18 20:46 184/85 H 09/06/18 20:37 96 09/06/18 19:28 96 09/06/18 18:45 95 09/06/18 18:10 97 09/06/18 17:55 99 09/06/18 17:45 99 09/06/18 17:35 99 09/06/18 17:25 100 09/06/18 17:15 97 09/06/18 17:05 99 09/06/18 16:55 99 09/06/18 16:45 100 09/06/18 16:35 99 09/06/18 16:25 100 09/06/18 16:15 93 09/06/18 16:05 94 09/06/18 15:55 100 09/06/18 15:45 100 09/06/18 15:35 100 09/06/18 13:54 92 PG Care Time/CCT Total # of Minutes Spent Total Time Spent with Patient: Total time spent is greater than 50% in coordination of care (as documented) at patient's floor/unit and/or counseling patient:
--- NOTE | 2018-09-07 01:45 | Operative Report ---
DATE OF OPERATION: 09/06/2018 SURGEON: Donald Alford MD. AUTOMATION/CONTROLS MANAGER: BEHZAD Finley PREOPERATIVE DIAGNOSIS: Right valgus impacted femoral neck fracture. POSTOPERATIVE DIAGNOSIS: Right valgus impacted femoral neck fracture. PROCEDURE PERFORMED: Right hip cannulated screw fixation of valgus impacted femoral neck fracture. COMPLICATIONS: None. ESTIMATED BLOOD LOSS: 50 mL. FLUID REPLACEMENT: 1200 mL crystalloid fluid replacement. ANESTHESIA: Spinal. DRAINS: None. SPECIMENS: None. OPERATIVE INDICATIONS: The patient is an 83-year-old fairly active female who sustained a fall yesterday. She could not ambulate afterwards. She was brought to the Emergency Room where x-rays revealed an impacted valgus femoral neck fracture. This was confirmed by MRI. The patient was admitted by the hospitalist service and medically optimized and indicated for surgical fixation. No preexisting hip pain. OPERATIVE IMPLANTS: Operative implants consisted of: 1. A 7.3 x 85 mm short thread/16 mm threaded Synthes cannulated screw. 2. A 6.5 x 85 mm long thread/32 mm threaded Synthes cannulated screw x2 with 2 washers. OPERATIVE PROCEDURE: The patient taken to the operating room, identified and placed on the operating table in supine position. All contact areas appropriately padded. IV antibiotics provided by anesthesia team. A spinal anesthetic was implemented. The patient was placed on the fracture table in the supine position. The right leg was placed in boot traction, the left leg was placed in a well leg tobar. I applied just a little bit of longitudinal traction to the right leg and internally rotated the kneecap so it pointed to the ceiling. X-ray was brought in. The fracture was anatomically aligned in a little bit of valgus impaction. The right hip was then scrubbed with Hibiclens and prepped with ChloraPrep and then draped in usual sterile fashion. About 4-5 cm incision made over the lateral aspect of the hip in the area of the screw entry site. Sharp dissection was carried through the subcutaneous tissue down to the level of the IT band. The IT band was incised longitudinally in line with the skin incision. The vastus lateralis was retracted anteriorly. I then placed a guidewire in the inferior aspect of the femoral neck in the mid aspect of the AP plane under fluoroscopic guidance. Once I placed this, I placed 2 additional guidewires, one superior and posterior and one superior and anterior using the parallel pin guide. The lengths of these were then measured. I placed a 7.3 short threaded 85 mm cannulated screw over the inferior guidewire and across the fracture site. I then placed a single 6.5/85 mm long threaded cannulated screw with a washer over each of the superior guidewires. I tightened these down nicely. I got good fixation. The guidewire was then removed. Some final pictures were obtained. Attention was then drawn toward closing. The wound was irrigated with copious amounts of normal saline. I injected locally with 30 mL of 0.5% Marcaine with epinephrine. The IT band was then closed with 0 Vicryl suture in running fashion. The subcutaneous tissue was then closed with 2 layers, the deep layer of 0 Vicryl suture and subcutaneous tissue with 2-0 Dexon suture in a buried interrupted fashion. The skin was closed with skin nnig. Leg was then cleaned and dried and a sterile dressing of Xeroform, 4 x 4's, an ABD and foam tape was applied. The patient was taken off the fracture table and transferred to the recovery room in stable condition. The patient tolerated the procedure well with no complication. All needle and sponge counts were correct at the end of the operation. I attest to the content of the Intraoperative Record and any orders documented therein. Any exception s are noted below.
[2018-09-07] MEDS: CEFAZOLIN 1000MG 1,000 MG/7.5 ML SYR IV SCH (05:51)
[2018-09-07 06:39] LABS: Basophils # (auto) 0.02 K/uL (0-0.2); Basophils % (auto) 0.2 %; Eosinophils % (auto) 2.4 %; Hematocrit (blood only) 32.4 % (37-47); Immature Granulocytes # (auto) 0.03 K/uL (0.00-0.02); Immature Granulocytes % (auto) 0.4 %; Lymphocytes # (auto) 1.25 K/uL (1.2-3.4); Lymphocytes % (auto) 14.7 %; Mean Corpuscular Volume 88.5 fL (80-100); Mean Platelet Volume 8.7 fL (7.4-10.4); Monocytes # (auto) 1.16 K/uL (0.11-0.59); Monocytes % (auto) 13.7 %; Neutrophils # (auto) 5.82 K/uL (1.4-6.5); Neutrophils % (auto) 68.6 %; Platelet Count 145 K/uL (130-400); RDW Coefficient of Variation 13.7 % (11.5-14.5); RDW Standard Deviation 44.2 fL (36.4-46.3); Red Blood Count 3.66 M/uL (4.2-5.4); White Blood Count 8.48 K/uL (4.8-10.8)
[2018-09-07 07:14] LABS: BUN Creatinine Ratio 18.7 (10-20); Calcium 8.1 mg/dl (8.5-10.1); Creatinine Clr Calc Pharmacy 89.6 ml/min; Est GFR (African American) 105.1; Est GFR (Non-African American) 90.7; Potassium 3.4 mmol/L (3.5-5.1)
--- NOTE | 2018-09-07 07:39 | Anesthesiology Progress Note ---
Date of Service September 07, 2018 Anesthesia Post Procedure Vital Signs Vital Signs: Temp Pulse Pulse Pulse Pulse Resp BP 09/07/18 05:52 09/07/18 03:25 37.1 C 65 18 09/06/18 23:06 36.7 C 67 16 09/06/18 21:40 36.7 C 78 18 09/06/18 20:46 79 09/06/18 20:37 37.2 C 79 16 195/90 H 09/06/18 19:28 37.3 C 79 18 180/92 H 09/06/18 18:45 37.4 C 84 18 189/84 H 09/06/18 18:10 37.1 C 90 16 177/85 H 09/06/18 17:55 36.9 C 85 18 171/86 H 09/06/18 17:45 36.9 C 76 18 174/91 H 09/06/18 17:35 76 16 169/81 H 09/06/18 17:25 78 20 166/79 H 09/06/18 17:15 80 14 172/97 H 09/06/18 17:05 75 14 163/79 H 09/06/18 16:55 37.4 C 77 13 170/78 H 09/06/18 16:45 72 13 153/92 H 09/06/18 16:35 81 13 161/71 H 09/06/18 16:25 78 17 164/72 H 09/06/18 16:15 74 13 143/75 H 09/06/18 16:05 71 14 150/75 H 09/06/18 15:55 77 12 143/62 H 09/06/18 15:45 70 14 134/75 09/06/18 15:35 36.5 C 78 13 111/53 L 09/06/18 13:54 37.1 C 76 16 180/88 H BP Pulse Ox 09/07/18 05:52 94 09/07/18 03:25 156/70 H 97 09/06/18 23:06 170/73 H 97 09/06/18 21:40 192/87 H 92 09/06/18 20:46 184/85 H 09/06/18 20:37 96 09/06/18 19:28 96 09/06/18 18:45 95 09/06/18 18:10 97 09/06/18 17:55 99 09/06/18 17:45 99 09/06/18 17:35 99 09/06/18 17:25 100 09/06/18 17:15 97 09/06/18 17:05 99 09/06/18 16:55 99 09/06/18 16:45 100 09/06/18 16:35 99 09/06/18 16:25 100 09/06/18 16:15 93 09/06/18 16:05 94 09/06/18 15:55 09/06/18 15:45 100 09/06/18 15:35 100 09/06/18 13:54 92 Pain Intensity Right Hip: Pain Intensity: 2 Notes Mental Status: alert / awake / arousable and participated in evaluation Nausea / Vomiting: adequately controlled Pain: adequately controlled Airway Patency, RR, SpO2: stable & adequate BP & HR: stable & adequate Hydration State: stable & adequate Neuraxial Anesthesia: sensory block resolved Anesthetic Complications: Pt Satisfied with anesthetic care
[2018-09-07] MEDS: ACETAMINOPHEN 325 MG TAB PO PRN ×3 (07:50→22:30)
[2018-09-07] MEDS: OLMESARTAN MEDOXOMIL 20 MG TAB PO SCH (07:51)
[2018-09-07] MEDS: ASPIRIN 81 MG ECTAB PO SCH ×2 (07:52→20:35)
[2018-09-07] MEDS: hydroCHLOROthiazide 25 MG TAB PO SCH (07:52)
[2018-09-07] MEDS: MULTIVITAMIN TAB PO SCH (07:53)
--- NOTE | 2018-09-07 11:27 | Progress Note ---
DATE: 09/07/2018 SUBJECTIVE: An 83-year-old female postop day 1 from a cannulated screw fixation of a valgus impacted femoral neck fracture. She is doing well. Not having much pain. Had a pretty good night. No chest pain or shortness of breath. Not feeling dizzy or lightheaded. No new complaints. OBJECTIVE: VITAL SIGNS: Temperature 36.5. Vital signs stable. GENERAL: Physical examination shows a pleasant elderly female. She is sitting up in bed and eating breakfast this morning. Looks comfortable. EXTREMITIES: Examination of the right leg reveals the leg to be well aligned. Dressing is clean, dry and intact. Thigh is soft and supple. She is neurologically intact. LABORATORY DATA: Hemoglobin is 11.0. Hematocrit 32.4. Electrolytes are pretty stable. Potassium is just a little bit low at 3.4. Sodium is about baseline. ASSESSMENT: An 83-year-old female postop day 1 from right hip cannulated screw fixation of valgus impacted femoral neck fracture. She is doing pretty well. Pain is controlled. She is neurologically intact. PLAN: 1. DVT prophylaxis including thigh-high TEDs, SCDs, and we would recommend a baby aspirin twice a day for the next 4-6 weeks. 2. PT/OT. We will keep her in partial weightbearing for the first 4-6 weeks. There will be 50% weightbearing in the right lower extremity. 3. Medical management as per the medicine service. 4. Disposition: She is orthopedically okay for discharge any time medically stable. I need to see her back 2 weeks out from her surgery date. Any orthopedic questions can be directed to me at [phone].
--- NOTE | 2018-09-07 22:19 | Hospitalist Progress Note ---
Date of Service September 07, 2018 Assessment & Plan (1) Fracture of right hip: Bedrest. Carias catheter placement. Parenteral pain control measures. Orthopedic consultation. postop day 1 from right hip cannulated screw fixation of valgus impacted femoral neck fracture. She is doing pretty well. Pain is controlled. She is neurologically intact. ASA 81 mg for 4-6 weeks as per ortho recommendations (2) HTN (hypertension): Treated with Benicar. B/P has been slightly elevated. May consider adding calcium channel uriel. (3) History of poliomyelitis: Supportive care (4) Restless leg syndrome: Consider ropinirole therapy (5) DVT prophylaxis: Lovenox subcu Subjective 83 yo female reports no new complaints today. Her pain appears to be controlled. Review of Systems Review of Systems: Constitutional-no fever or chills ENT-no blurred vision, no double vision, no epistaxis, no sore throat Respiratory-no cough, no wheezing, no shortness of breath Cardiac-no palpitations, no chest pain, no syncope GI-no nausea, vomiting, diarrhea, melena, hematochezia -no urinary retention, no urinary incontinence, no dysuria, no hematuria Musculoskeletal-no muscle tenderness. Right hip pain after falling today Skin-no bruising, no rashes, no pruritus Neuro-no isolated weakness, no paresthesia, no weakness Psych-no depression, no anxiety Physical Exam Physical Exam: General-alert and oriented x3, no fevers, no chills HEENT-head atraumatic and normocephalic, TMs intact bilaterally, pupils equal and reactive to light, extraocular muscles intact Neck-no lymphadenopathy or thyromegaly, trachea midline Chest-clear to auscultation percussion. No rales wheezing or rhonchi Cardiac-regular rate and rhythm, normal S1 and S2, occasional premature beat Abdomen-normal bowel sounds, nontender, no hepatosplenomegaly Extremities-no cyanosis, clubbing, or edema. Neuro-cranial nerves II through XII intact, motor and sensory function within normal limits, strength symmetrical , no focal deficits Psych-normal affect, normal mood Results & Data Vital Signs (Past 12 Hours) Vital Signs Temp Pulse Pulse Resp BP BP Pulse Ox 09/07/18 15:15 36.5 C 69 16 163/72 H 96 09/07/18 14:30 76 165/71 H PG Care Time/CCT Total # of Minutes Spent Total Time Spent with Patient: Total time spent is greater than 50% in coordination of care (as documented) at patient's floor/unit and/or counseling patient:
[2018-09-07 23:36] VITALS: O2SAT 95
[2018-09-08 07:14] VITALS: TEMP 98.6
[2018-09-08] MEDS: ACETAMINOPHEN 325 MG TAB PO PRN ×2 (09:37→14:28)
[2018-09-08] MEDS: hydroCHLOROthiazide 25 MG TAB PO SCH (09:39)
[2018-09-08] MEDS: OLMESARTAN MEDOXOMIL 20 MG TAB PO SCH (09:39)
[2018-09-08] MEDS: ASPIRIN 81 MG ECTAB PO SCH (09:39)
[2018-09-08] MEDS: MULTIVITAMIN TAB PO SCH (09:40)
[2018-09-08] MEDS ORDERED: AMLODIPINE BESYLATE 5 MG TAB PO ONE (09:53)
[2018-09-08 10:20] VITALS: BP 160/74
[2018-09-08 12:23] VITALS: PULSE 85
--- NOTE | 2018-09-15 21:33 | Discharge Summary ---
Date of Service September 08, 2018 Admission HPI Per Admitting Provider 83-year-old female in good health who tripped and fell at home suffering right hip pain. She was brought to the ED for evaluation. MRI scan reveals evidence of right hip fracture which is nondisplaced. The ED physician has discussed the case with Dr. Donald Alford of orthopedic surgery. I anticipate she will go to the OR tomorrow morning. Carias catheter will be placed and EKG obtained. She takes Benicar for hypertension. She is otherwise medically stable and medically cleared for surgery at this time. Principal Diagnosis Right hip Fracture Discharge Exam General-alert and oriented x3, no fevers, no chills HEENT-head atraumatic and normocephalic, TMs intact bilaterally, pupils equal and reactive to light, extraocular muscles intact Neck-no lymphadenopathy or thyromegaly, trachea midline Chest-clear to auscultation percussion. No rales wheezing or rhonchi Cardiac-regular rate and rhythm, normal S1 and S2, occasional premature beat Abdomen-normal bowel sounds, nontender, no hepatosplenomegaly Extremities-no cyanosis, clubbing, or edema. Neuro-cranial nerves II through XII intact, motor and sensory function within normal limits, strength symmetrical , no focal deficits Psych-normal affect, normal mood Discharge Data Allergies Allergy/AdvReac Type Severity Reaction Status Date / Time No Known Allergies Allergy Verified 09/06/18 13:37 Consultations 09/05/18 10:24 ED Decision to Admit Stat 09/05/18 13:51 Consult Orthopedic Surgery Routine 09/06/18 18:12 Consult Case Management - Discharge Planning Routine Procedures Performed Operation Date: 09/06/18 10:00 Actual Procedures p Right Femoral Neck Fracture Right Cannulated Screw(Right) - Donald Alford MD Ordered Studies 09/05/18 10:33 MR hip RT wo con Stat 09/06/18 14:00 FL fluoroscopy <1hr Routine FL hip RT 2-3V Routine Hospital Course (1) Fracture of right hip: Bedrest. Carias catheter placement. Parenteral pain control measures. Orthopedic consultation. postop day 1 from right hip cannulated screw fixation of valgus impacted femoral neck fracture. She is doing pretty well. Pain is controlled. She is neurologically intact. ASA 81 mg BID for 4-6 weeks as per ortho recommendations (2) HTN (hypertension): Treated with Benicar. B/P has been slightly elevated. Added low dose calcium channel uriel in the evening. (3) History of poliomyelitis: Supportive care (4) Restless leg syndrome: Consider ropinirole therapy (5) DVT prophylaxis: ASA Total Time Total Time Spent Total Time Spent (In Minutes): 32 Total Time Includes: Examination of the Patient, Discharge Planning and Medication Reconciliation Discharge Plan Discharge Items Patient Disposition: Transfer Inpatient Rehab Fac Reason For Visit: FALL Discharge Diagnosis: Fall, hip fracture Discharge Goals: Decrease discomfort Activity: Per 'Additional Instructions' section Activity Comment: Partial / 50% weightbearing on right leg. Weightbearing: Right partial Weightbearing Comment: 50% Weightbearing on right leg for 6 weeks Non-emergency contact: Surgeon Call non-emergency contact if: you have any medication questions Follow-up/Referrals: [facility] [Primary Care Provider] - Diet: Regular Addtl Provider Instructions: 50% Weightbearing on right leg Schedule return to clinic appointment with ORthopedics 2 weeks from surgery date. Continue with Aspirin 81 mg twice a day for 6 weeks. Added a low dose of amlodipine, this is a second blood pressure medicine. This will be taken at night time. Prescriptions: New acetaminophen [Mapap (acetaminophen)] 325 mg Tablet 650 mg PO Q4H PRN (Reason: pain) Qty: 0 RF: 0 aspirin [Ecotrin Low Strength] 81 mg Tablet,Delayed Release (Dr/Ec) 81 mg PO BID Qty: 0 RF: 0 amlodipine 2.5 mg tablet 2.5 mg PO HS Qty: 30 RF: 0 Continued multivitamin Capsule 1 cap PO QAM RF: 0 olmesartan-hydrochlorothiazide 20-12.5 mg tablet 1 tab PO DAILY RF: 0 Stand-Alone Forms: [facility] [employer]/Other Patient Handouts: Falls Prevent Prepare What Do Discharge Orders: Discharge Order (Routine); Ordered 09/08/18 Ordered By: Wander Garay Skilled Items Patient informed of condition?: Yes DNR: No Discharge Level of Care: Acute rehab Communicable Disease: No Discharge Prognosis: Stable Admission Data Admit Date/Time: 09/05/18 11:52 Attending Provider: Wander Garay Admit Provider: Andrade Solomon Primary Care Provider: PCP,NO Other Providers: Andrade Solomon ; Donald Alford Service: Surgical Services Other Interventions: Discharge Summary Assessment (RN) Last Done: 09/08/18 14:15 DC Date/Time DO NOT enter until pt leaves facility: 09/08/18 14:40
== END 2018-09-08 14:40 | DRG 482 ==
LOC: ED 09:16 → 3N 11:52 → SUATTDRO 11:52 → 3N 12:37
DX: S72.011A Unspecified intracapsular fracture of right femur, initial encounter for closed fracture; I10 Essential (primary) hypertension; Z86.12 Personal history of poliomyelitis; W19.XXXA Unspecified fall, initial encounter; G25.81 Restless legs syndrome